=== PATIENT | male | born 1980 | race Caucasian/White ===

== ENCOUNTER 2021-06-08 10:42 | Emergency (ER) | payer OTHER ==
[~2021-06-08] VITALS: Ht 193 cm; Wt 95.3 kg
--- NOTE | 2021-06-08 10:45 | NUR ---
Placed in room 5 . Placed on laboratory monitor, blood pressure machine and pulse oximeter. To gown for exam. Side rails up. Report given to JOSE MIGUEL Cardoza.
[2021-06-08 10:48] VITALS: BP_SYST 130
--- NOTE | 2021-06-08 10:50 | NUR ---
ER Dr. Hunt at bedside examining patient.
--- NOTE | 2021-06-08 11:08 | NUR ---
RECEIVED AND IN ROOM, PT CALM, ALERT, COMMUNICATES CLEARLY IN FULL COMPLETE SENTECES, DENIES CP/SOB. MUTIPLE ABRASIONS. PT POOR HX WITH ADMISSION OF ETOH INTOXICATION
--- NOTE | 2021-06-08 12:02 | NUR ---
FOOT CARE, SUMERFACIAL ABRASIONS TO TOP OF HIS FEET
--- NOTE | 2021-06-08 12:11 | NUR ---
MEAL PROVIDED, PT TOLERATED WELL, NO DISTRESS
--- NOTE | 2021-06-08 13:25 | NUR ---
Refuses offer of alf placement. Given list of available shelters in surrounding areas.
[2021-06-08 13:30] VITALS: BP_SYST 127
--- NOTE | 2021-06-08 13:30 | NUR ---
Pt now requesting taxi voucher to return back to [place] [id number], called house detective, Jeancarlos and he stated he will request one.
--- NOTE | 2021-06-08 13:30 | NUR ---
Patient given written and verbal discharge instructions and verbalizes understanding. ER MD discussed with patient the results and treatment provided. Patient in stable condition. ID arm band removed. IV catheter removed intact and dressing applied, no active bleeding. No prescriptions given. Patient educated on pain management and to follow up with PMD. Pain Scale 0. Opportunity for questions provided and answered. Medication side effect fact sheet provided.
[2021-06-08] MEDS ORDERED: THIAMINE HCL 100 MG/ML VIAL ONE (20:42)
[2021-06-08] MEDS ORDERED: MAGNESIUM SULFATE 1 GM/2 ML VIAL ONE (20:43)
[2021-06-08] MEDS ORDERED: FOLIC ACID 5 MG/ML VIAL IV ONE (20:43)
[2021-06-08] MEDS ORDERED: DEXTROSE 50% JECT 50 ML DISP.SYRIN ONE (21:41)
[2021-06-08] MEDS ORDERED: ONDANSETRON HCL 4 MG/2 ML VIAL ONE (23:12)
== END 2021-06-08 13:30 | disposition home or self-care (01) ==
LOC: SED 10:42
DX: S90.811A Abrasion, right foot, initial encounter (principal); S90.812A Abrasion, left foot, initial encounter; F10.129 Alcohol abuse with intoxication, unspecified; X58.XXXA Exposure to other specified factors, initial encounter; Y93.89 Activity, other specified; Y92.89 Other specified places as the place of occurrence of the external cause; Y99.8 Other external cause status
CPT/HCPCS: 99283; J2405; J3411; J3475; J3490

== ENCOUNTER 2021-06-08 19:03 | Inpatient (IN) | payer OTHER, SELFPAY ==
[~2021-06-08] VITALS: Ht 193 cm; Wt 94.8 kg
[2021-06-08 19:10] VITALS: BP_SYST 106
--- NOTE | 2021-06-08 19:15 | NUR ---
Placed in room 5 . Placed on quality assurance monitor body, blood pressure machine and pulse oximeter. To gown for exam. Side rails up. Report given to Marifer GILLESPIE.
--- NOTE | 2021-06-08 20:00 | NUR ---
PT AAOX3 WITH PERIODS OF CONFUSION BIB [facility] WHO WAS PUT INTO A 5150 HOLD D/T GRAVELY DISABLED. PT WAS SEEN EARLIER TODAY FOR ETOH AND BILATERAL UPPER AND LOWER ABRASIONS TO FEET. +GENERALIZED WEAKNESS. NOTED YELLOW SCLERA. PT STATED HE DRINKS ALCOHOL EVERY DAY. HISTORY OF SEIZURES, DEPRESSION AND ETOH ABUSE.
--- NOTE | 2021-06-08 20:20 | NUR ---
# 20 gauge angiocath placed to RIGHT FA. Use of asceptic technique. Opsite placed over site. Blood return noted. Blood for lab drawn from site. Flushed with 10 cc of normal saline. No evidence of infiltration noted. Patient tolerated well.
--- NOTE | 2021-06-08 20:25 | NUR ---
DR. SEYMOUR AT BEDSIDE FOR EVALUATION.
--- NOTE | 2021-06-08 20:25 | NUR ---
urine and blood collection tubes sent to lab
[2021-06-08] MEDS ORDERED: FOLIC ACID 1 MG, THIAMINE HCL 100 MG, MAGNESIUM SULFATE 1 GM, MVI 10 ML in NACL 0.9% 1,... IV ONE (20:30)
[2021-06-08 20:42] LABS: BASOPHILS % (AUTO) 0.1 % (0.0-2.0); HEMATOCRIT 40.3 % (36-54); HEMOGLOBIN 13.8 g/dL (14.0-18.0); LYMPHOCYTES # (AUTO) 0.3 K/uL (1.0-5.5); LYMPHOCYTES % (AUTO) 3.8 % (20.5-51.5); MEAN CORPUSCULAR HEMOGLOBIN 34 pg (27-31); MEAN CORPUSCULAR HGB CONC 34 % (32-36); MEAN CORPUSCULAR VOLUME 100 fL (79.0-98.0); MONOCYTES # (AUTO) 0.6 K/uL (0.0-1.0); MONOCYTES % (AUTO) 6.5 % (1.7-9.3); NEUTROPHILS # (AUTO) 7.8 K/uL (1.8-7.7); NEUTROPHILS % (AUTO) 89.6 % (40.0-70.0); RED BLOOD CELL COUNT(AUTO) 4.03 MIL/uL (4.2-6.2); RED CELL DISTRIBUTION WIDTH 15.8 % (9.0-15.0); WHITE BLOOD COUNT (AUTO) 8.7 K/uL (4.8-10.8)
--- NOTE | 2021-06-08 21:00 | NUR ---
SECURITY AT BEDSIDE TO MARK NAVA
[2021-06-08 21:10] LABS: ANION GAP 27 (5-15); CALCIUM 9.8 mg/dL (8.4-11.0); CHLORIDE 95 mmol/L (98-107); CREATININE 3.98 mg/dL (0.55-1.30); SODIUM SERUM 138 mmol/L (136-145); UREA NITROGEN, BLOOD 20 mg/dL (8-21)
[2021-06-08 21:11] LABS: PLATELET COUNT (AUTO) 32 K/uL (130-430)
[2021-06-08 21:21] LABS: ALBUMIN 4.2 g/dL (3.4-4.8)
[2021-06-08 21:29] LABS: GFR AFRICAN AMERICAN 21 mL/min (>90); POTASSIUM 2.6 mmol/L (3.5-5.1)
--- NOTE | 2021-06-08 21:30 | NUR ---
PT PLACED ON CARDIAC MONTIOR. GIVEN GOWN. ALL BELONGINGS GATHERED AND PLACED IN BELONGINGS BAG.
--- NOTE | 2021-06-08 21:30 | NUR ---
PT BS 57. MD NOTIFIED. N/O FOR DEXTROSE 50 GIVEN.
[2021-06-08 21:32] LABS: ALCOHOL, BLOOD < 3 mg/dL (<10); GLUCOSE 40 mg/dL (70-99)
[2021-06-08 21:35] LABS: TOTAL BILIRUBIN 9.6 mg/dL (0.0-1.0)
[2021-06-08] MEDS ORDERED: DEXTROSE 50% JECT 50 ML DISP.SYRIN IVP ONE (21:45)
--- NOTE | 2021-06-08 21:50 | NUR ---
ISABELLA BEAN COLLECTED AND SENT TO LAB.
[2021-06-08 21:58] LABS: INR 2.1 (0.80-1.20)
--- NOTE | 2021-06-08 22:07 | NUR ---
dr. rincon at bedside for evaluation.
[2021-06-08] MEDS ORDERED: POTASSIUM CHLORIDE 20 MEQ TAB.PRT.SR PO ONE (22:15)
[2021-06-08] MEDS ORDERED: KCL 30mEq in D5/0.45NS 1000 mL 1,000 ML IV ONE (22:15)
--- NOTE | 2021-06-08 22:23 | NUR ---
PORTABLE XRAY DONE AT BEDSIDE.
[2021-06-08] MEDS ORDERED: NACL 0.9% 1,000 ML IV ONE (22:30)
--- NOTE | 2021-06-08 22:40 | NUR ---
PT BROUGHT BACK FROM CT SCAN VIA GURNEY BY RADIOLOGY STAFF. PT HAVING NAUSEA AND VOMITING. PT VOMITTED DARK VOMIT NOTED WITH FOOD. MADE AWARE. N/O OF ZOFRAN 4MG IVP TO BE GIVEN.
--- NOTE | 2021-06-08 22:45 | NUR ---
BLOOD GLUCOSE RE-CHECKED. BS NOW 130. MADE AWARE.
[2021-06-08 22:52] LABS: ASPARTATE AMINOTRANSFERASE 17391 U/L (10-37)
[2021-06-08 23:05] LABS: ALANINE AMINOTRANSFERASE 5824 U/L (12-78)
--- NOTE | 2021-06-08 23:30 | NUR ---
# 18 gauge angiocath placed to LEFT AC. Use of asceptic technique. Opsite placed over site. Blood return noted. Flushed with 10 cc of normal saline. No evidence of infiltration noted. Patient tolerated well.
[2021-06-08] MEDS ORDERED: ONDANSETRON HCL 4 MG/2 ML VIAL IVP ONE (23:45)
[2021-06-09] MEDS ORDERED: HALOPERIDOL LACTATE 5 MG/ML VIAL IM ONE (00:15)
[2021-06-09] MEDS ORDERED: LORazepam 2 MG/ML VIAL IVP ONE (00:15)
--- NOTE | 2021-06-09 00:56 | NUR ---
JOSE MIGUEL Alfaro from [facility] Called back. Authorization to admit to Telemetry [id number].
--- NOTE | 2021-06-09 01:10 | NUR ---
Patient will be admitted to [facility]. Admitted to TELE unit. PENDING ROOM ASSIGNMENT. Belongings list completed. Complete and up to date summary report printed. SBAR report to be given at bedside with opportunity for questions.
--- NOTE | 2021-06-09 02:11 | NUR ---
Patient's code status is FULL CODE paperwork completed and placed in chart.
[2021-06-09] MEDS: D5LR 500 ML IV SCH ×6 (02:43→21:15)
--- NOTE | 2021-06-09 02:59 | NUR ---
PT PLACED ON HOSPITAL BED. REPOSITIONED. AND GIVEN NEW LINEN.
--- NOTE | 2021-06-09 04:38 | NUR ---
Patient resting quietly. No acute distress noted. Vital signs within normal range. IVF infusing with no s/s of infiltration at this time. Will cont to monitor
--- NOTE | 2021-06-09 06:30 | NUR ---
Patient resting quietly. No acute distress noted. Vital signs within normal range.
--- NOTE | 2021-06-09 07:12 | NUR ---
REPORT GIVEN TO JOSE MIGUEL MOSHER.
[2021-06-09] MEDS ORDERED: D5W IV ONE ×3 (07:30→14:00)
[2021-06-09] MEDS ORDERED: ACETYLCYSTEINE IV ONE ×3 (07:30→14:00)
--- NOTE | 2021-06-09 07:30 | NUR ---
Patient will be admitted to care of Dr. Marrero. Admitted to tele unit. Will go to room 113A. Belongings list completed. Complete and up to date summary report printed. SBAR report to be given at bedside with opportunity for questions.
--- NOTE | 2021-06-09 07:59 | NUR ---
CONSULTATION PAGED/CALLED Reason for Consultation: ALCOHOLIC HEPATITIS Person Who was Notified: DAGO Consulting Physician: MANNIE Radio Script Writer Specialty: GI Ordering Physician: MORALES
--- NOTE | 2021-06-09 08:00 | NUR ---
CONSULTATION PAGED/CALLED Reason for Consultation: [] ALCOHOLIC HEPATITIS Person Who was Notified: [] DR CHAND Consulting Physician: [] DR CHAND Natural Resource Economist Specialty: [] GI Ordering Physician: [] DR NIELSEN
[2021-06-09 08:48] VITALS: BP_SYST 128
[2021-06-09] MEDS: LORazepam 2 MG/ML VIAL IVP PRN ×3 (09:56→22:04)
--- NOTE | 2021-06-09 10:00 | NUR ---
IV ATIVAN 1MG ADMINISTERED, PATIENT WAS ANXIOUS AND SHAKING, VITAL SIGNS STABLE, WILL ASSESS FOR EFFECTIVENESS.
[2021-06-09 11:11] VITALS: BP_SYST 126
--- NOTE | 2021-06-09 11:17 | NUR ---
CONSULTATION PAGED/CALLED Reason for Consultation: RUSSELL Ruiz Person Who was Notified: MESERET Consulting Physician: DOUG Paper Tube Cutter Specialty: NEPHRO Ordering Physician: MORALES
[2021-06-09 12:04] LABS: BILIRUBIN,URINE 2+ (NEGATIVE); BLOOD, URINE 3+ (NEGATIVE); CLARITY/URINE SL CLOUDY (CLEAR); COLOR,URINE BROWN (YELLOW); GLUCOSE,URINE TRACE (NEGATIVE); KETONES,URINE 1+ (NEGATIVE); LEUKOCYTE ESTERASE ,URINE NEGATIVE (NEGATIVE); NITRITE, URINE NEGATIVE (NEGATIVE); PROTEIN URINE 2+ (NEGATIVE)
[2021-06-09 12:08] LABS: BASOPHILS % (AUTO) 0.3 % (0.0-2.0); EOSINOPHILS % (AUTO) 0.8 % (0.0-4.0); HEMOGLOBIN 11.2 g/dL (14.0-18.0); LYMPHOCYTES # (AUTO) 0.7 K/uL (1.0-5.5); LYMPHOCYTES % (AUTO) 10.4 % (20.5-51.5); MEAN CORPUSCULAR HEMOGLOBIN 35 pg (27-31); MEAN CORPUSCULAR HGB CONC 35 % (32-36); MEAN CORPUSCULAR VOLUME 99 fL (79.0-98.0); MONOCYTES # (AUTO) 0.2 K/uL (0.0-1.0); MONOCYTES % (AUTO) 3.5 % (1.7-9.3); NEUTROPHILS # (AUTO) 5.4 K/uL (1.8-7.7); RED BLOOD CELL COUNT(AUTO) 3.24 MIL/uL (4.2-6.2); RED CELL DISTRIBUTION WIDTH 16.2 % (9.0-15.0); WHITE BLOOD COUNT (AUTO) 6.3 K/uL (4.8-10.8)
[2021-06-09 12:19] LABS: PLATELET COUNT (AUTO) 36 K/uL (130-430)
[2021-06-09 12:28] LABS: BARBITURATE, URINE NEGATIVE (NEG <=200); BENZODIAZEPINE, URINE POSITIVE (NEG <=150); CANNABINOID, URINE POSITIVE (NEG <=50); COCAINE, URINE NEGATIVE (NEG <=150); METHAMPHETAMINES SCREEN,URINE NEGATIVE (NEG <=500); OPIATE, URINE NEGATIVE (NEG <=100); PHENCYCLIDINE SCREEN,URINE NEGATIVE (NEG <=25); UR TRICYCLIC ANTIDEPRESSANTS NEGATIVE (NEG <=300); URINE AMPHETAMINE NEGATIVE (NEG <=500); URINE METHADONE NEGATIVE (NEG <=200); URINE OXYCODONE SCREEN NEGATIVE (NEG <=100); URINE PROPOXYPHENE SCREEN NEGATIVE (NEG <=300)
[2021-06-09 12:34] LABS: CALCIUM 7.8 mg/dL (8.4-11.0); CREATININE 4.85 mg/dL (0.55-1.30)
[2021-06-09 12:48] LABS: ALBUMIN 2.8 g/dL (3.4-4.8); PHOSPHORUS 3.1 mg/dL (2.7-4.5); TOTAL BILIRUBIN 6.7 mg/dL (0.0-1.0)
[2021-06-09 12:50] LABS: POTASSIUM 2.8 mmol/L (3.5-5.1)
[2021-06-09 12:56] LABS: BACTERIA,URINE RARE /HPF (None Seen); URINE AMORPHOUS URATE 1+ /HPF (None Seen); WBC,URINE 0-3 /HPF (0-3)
[2021-06-09 12:57] LABS: FINE GRANULAR CASTS,URINE 0-10 /LPF (None Seen)
--- NOTE | 2021-06-09 13:40 | NUR ---
IV ATIVAN 1MG ADMINISTERED, PATIENT WAS ANXIOUS AND SHAKING, VITAL SIGNS STABLE, WILL ASSESS FOR EFFECTIVENESS.
--- NOTE | 2021-06-09 13:42 | NUR ---
AUBRIE met with Pt. to provide substance abuse referrals. Pt. has a clear plan for DC, he intends to return to [place] for [place], will be transported by his mother. Pt. was provided with local sober living facilities, he is interested in [facility], upon completion of Detox. Pt. was receptive of this information and had no other request for inquiry. Addendum: 06/17/21 at 0904 by Chris Gerard LCSW Correction/ Charting ERROR: AUBRIE attempted to meet with this Pt. 2 X however, he was lethargic and unable to participate in assessment.
[2021-06-09 15:57] VITALS: BP_SYST 130
--- NOTE | 2021-06-09 18:51 | NUR ---
PATIENT IN BED, NO S/S OF DISTRESS, SITTER AT BEDSIDE, PATIENT ASSESSED FOR ALCOHOL WITHDRAWAL SYMPTOMS, MINOR TREMORS NOTED BUT IMPROVED SINCE ADMISSION TO UNIT. IV INTACT PATENT IN LEFT FA 22G RUNNING ACETADOTE AT 62.5ML/HR, TOLERATING WELL, BED IN LOWEST LOCKED POSITION, CALL LIGHT WITHIN REACH, SEIZURE PADS IN PLACE, A/OX3, SAFETY MEASURES IN PLACE, WILL CONTINUE TO MONITOR.
[2021-06-09 20:00] VITALS: BP_SYST 125
[2021-06-10] MEDS: D5LR 500 ML IV SCH ×9 (00:18→17:57)
[2021-06-10 06:06] LABS: HEPATITIS A AB, IgM Negative (Negative); HEPATITIS B CORE AB, IgM Negative (Negative); HEPATITIS B SURFACE AG Negative (Negative)
--- NOTE | 2021-06-10 07:30 | NUR ---
Patient resting comfortably in bed with no distress noted. Patient stable at this time.
[2021-06-10 07:45] LABS: BASOPHILS % (AUTO) 0.6 % (0.0-2.0); EOSINOPHILS # (AUTO) 0.2 K/uL (0.0-0.4); EOSINOPHILS % (AUTO) 3.7 % (0.0-4.0); HEMATOCRIT 32.8 % (36-54); HEMOGLOBIN 11.5 g/dL (14.0-18.0); LYMPHOCYTES # (AUTO) 0.9 K/uL (1.0-5.5); LYMPHOCYTES % (AUTO) 16.1 % (20.5-51.5); MEAN CORPUSCULAR HEMOGLOBIN 34 pg (27-31); MEAN CORPUSCULAR HGB CONC 35 % (32-36); MEAN CORPUSCULAR VOLUME 97 fL (79.0-98.0); MONOCYTES # (AUTO) 0.7 K/uL (0.0-1.0); MONOCYTES % (AUTO) 12.5 % (1.7-9.3); NEUTROPHILS # (AUTO) 3.6 K/uL (1.8-7.7); NEUTROPHILS % (AUTO) 67.1 % (40.0-70.0); PLATELET COUNT (AUTO) 52 K/uL (130-430); RED BLOOD CELL COUNT(AUTO) 3.36 MIL/uL (4.2-6.2); RED CELL DISTRIBUTION WIDTH 16.2 % (9.0-15.0); WHITE BLOOD COUNT (AUTO) 5.3 K/uL (4.8-10.8)
[2021-06-10 08:00] VITALS: BP_SYST 130
[2021-06-10 08:01] LABS: INR 1.6 (0.80-1.20); PROTHROMBIN TIME 16.3 SECS (9.5-12.5)
[2021-06-10 08:14] LABS: TOTAL IRON BIND. CAPACITY 162 ug/dL (250-450)
--- NOTE | 2021-06-10 08:30 | NUR ---
Patient stable with Dr. James at bedside.
[2021-06-10 08:32] LABS: ANION GAP 13 (5-15); CALCIUM 8.6 mg/dL (8.4-11.0); CHLORIDE 99 mmol/L (98-107); CREATININE 4.89 mg/dL (0.55-1.30); GLUCOSE 128 mg/dL (70-99); LACTATE DEHYDROGENASE 819 U/L (85-227); SODIUM SERUM 139 mmol/L (136-145); TOTAL BILIRUBIN 8.4 mg/dL (0.0-1.0); UREA NITROGEN, BLOOD 30 mg/dL (8-21)
[2021-06-10] MEDS: NEPHROVITE, (FOLIC ACID/VITAMIN B COMP W-C 1 TAB) PO SCH (09:45)
[2021-06-10] MEDS: THIAMINE HCL 100 MG TABLET PO SCH (09:45)
--- NOTE | 2021-06-10 09:47 | NUR ---
Scheduled po medications given per order. Patient stable at this time with RENAE Springer at bedside. Addendum: 06/10/21 at 0949 by Mariam Mcintosh RN Emptied 500 mls of clear, jaziel urine.
--- NOTE | 2021-06-10 09:55 | NUR ---
Patient ambulating with walker assist in hallway with RENAE Springer standing by.
[2021-06-10 10:09] LABS: GFR AFRICAN AMERICAN 17 mL/min (>90); POTASSIUM 2.6 mmol/L (3.5-5.1)
--- NOTE | 2021-06-10 10:09 | NUR ---
Patient sitting on side of bed with Dr. Waterman and RENAE Springer at bedside. Patient stable.
[2021-06-10] MEDS ORDERED: POTASSIUM CHLORIDE 20 MEQ TAB.PRT.SR PO ONE (10:30)
[2021-06-10 10:55] LABS: ACETAMINOPHEN < 1 ug/mL (1-30)
[2021-06-10 11:04] LABS: ASPARTATE AMINOTRANSFERASE 4894 U/L (10-37)
[2021-06-10 11:05] LABS: ALANINE AMINOTRANSFERASE 3784 U/L (12-78)
--- NOTE | 2021-06-10 11:07 | NUR ---
Scheduled medication given per order. Patient resting quietly in bed with sitter at bedside. Patient stable.
[2021-06-10 12:15] VITALS: BP_SYST 129
--- NOTE | 2021-06-10 12:40 | NUR ---
Wound Evaluation: Wound Consult ordered for Low Ru Score. Patient evaluated for a low Ru score, now a 17. Patient was awake, alert, oriented and received in a [place] Bed with a mattress. Patient needs to be turned in bed. Skin assessment: 1. Right Great Toe, Dorsal Aspect: Black scab, present on admission. No odor, no drainage. Periwound intact. Dry, stable. 2. Right Second Toe, Dorsal Aspect: Black scab, present on admission. No odor, no drainage. Periwound intact. Dry, stable. 3. Right Third Toe, Dorsal Aspect: Black scab, present on admission. No odor, no drainage. Periwound intact. Dry, stable. 4. Right Fourth Toe, Dorsal Aspect: Black scab, present on admission. No odor, no drainage. Periwound intact. Dry, stable. 5. Right Great Toe, Distal Aspect: Black scab, present on admission. No odor, no drainage. Periwound intact. Dry, stable. 6. Right Second Toe, Distal Aspect: Black scab, present on admission. No odor, no drainage. Periwound intact. Dry, stable. 7. Left Great Toe, Dorsal Aspect: Black scab, present on admission. No odor, no drainage. Periwound intact. Dry, stable. 8. Left Second Toe, Dorsal Aspect: Black scab, present on admission. No odor, no drainage. Periwound intact. Dry, stable. 9. Left Anterior Ankle Joint Line: Black scab, present on admission. No odor, no drainage. Periwound intact. Dry, stable. 10. Left Knee: Black scab, present on admission. No odor, no drainage. Periwound intact. Dry, stable. 11. Left Tibial Plateau: Black scab, present on admission. No odor, no drainage. Periwound intact. Dry, stable. 12. Right Distal Anterior Rodriguez: Black scab, present on admission. No odor, no drainage. Periwound intact. Dry, stable. 13. Left Posterior Upper Extremity/Elbow/Bicep areas: Multiple, multiple abrasions with black scabs, present on admission. 14. Right Posterior Upper Extremity/Elbow/Bicep areas: Multiple, multiple abrasions with black scabs, present on admission. 15. Left Forearm: Multiple black scabs, present on admission. No odor, no drainage. Periwound intact. Dry, stable. 16. Right Forearm: Multiple black scabs, present on admission. No odor, no drainage. Periwound intact. Dry, stable. Recommend: No dressings needed. Continue to monitor sites every shift. Contact wound care nurse if sites open or draining. 17. Left Heel/Plantar Foot: Dry and scaly skin, along with heel fissures, present on admission. 18. Right Heel/Plantar Foot: Dry and scaly skin, present on admission. Recommend: Cleanse involved areas with mild soap and water. Pat dry. Apply Eucerin cream to dry scaly skin areas twice daily. Do not apply to scabs. Recommend: Encourage and assist patient as needed with repositioning every 2 hours with pillow support. Elevate, off-load and float bilateral heels with pillows. Offload pressure areas with pillows for pressure re-distribution. Perform skin care and monitor skin integrity Q shift. Use moisture barrier cream on moisture susceptible areas QID and PRN for soiling.
--- NOTE | 2021-06-10 12:40 | NUR ---
Patient resting comfortably in bed with Armani (wound care) at bedside. Patient stable at this time.
--- NOTE | 2021-06-10 13:15 | NUR ---
Patient resting quietly in bed with no distress noted. Emptied 500 mls of clear, jaziel urine from urinal.
--- NOTE | 2021-06-10 13:45 | NUR ---
Patient stable with Dr. Marrero at bedside.
--- NOTE | 2021-06-10 15:40 | NUR ---
Patient resting quietly in bed with no distress noted. Emptied 250 ml of clear, light jaziel urine. Patient stable.
[2021-06-10 16:00] VITALS: BP_SYST 124
--- NOTE | 2021-06-10 18:00 | NUR ---
Patient resting comfortably in bed with no distress noted and no complaint of pain. Started new IVF bag. Patient stable throughout shift.
--- NOTE | 2021-06-10 19:25 | NUR ---
initial notes: pt is awake, alert, oriented x 3. with some moment of confusion. no sign of distress, no pain, pt sit on the edge of bed and eat his dinner. ivf infusing to left fore intact and patent.pt has multiple abrasion to bilateral toes, multiple dry black scabs. explain plan of care and safety. needs attended, call light in reach, side rails up .ow bed position. will monitor pt at bedside as sitter.
--- NOTE | 2021-06-10 19:30 | NUR ---
initial notes: pt is sleeping, no sign of pain, not distress, no sob. pt vital sign with normal limits. pt right arm is swollen. according to report pt has dvt on left axilla and right brachial. dr. welch is page. safety precaution in place, side rails up. low bed position. will monitor. Addendum: 06/10/21 at 2320 by Francisco Joaquin RN disregard this entry, wrong pt.
[2021-06-10 19:33] VITALS: BP_SYST 135
--- NOTE | 2021-06-10 19:46 | NUR ---
dr. welch call back- report to bilateral dvt to left axillaxy and right brachial. order eliquis 5mg bid via gt and dc picc line, tpn and lipids. increase gtfeeding to 40cc/hr. Addendum: 06/10/21 at 2319 by Francisco Joaquin RN disregard this note, wrong entry
--- NOTE | 2021-06-10 19:51 | NUR ---
HIGH ALERT NOTE: Called Dr. welch back at [phone] identified within the medical roster to verify physician authenticity. Addendum: 06/10/21 at 5206 by Francisco Joaquin RN disregard wrong entry
[2021-06-10] MEDS: D5LR 1,000 ML IV SCH (21:46)
[2021-06-10] MEDS: EMOLLIENT COMBINATION NO.73 78 GM CREAM..G. TP SCH (21:49)
[2021-06-10] MEDS: LORazepam 2 MG/ML VIAL IVP PRN (22:23)
[2021-06-11] VITALS: BP_SYST 132
--- NOTE | 2021-06-11 00:16 | NUR ---
pt is sleeping, no pain,no sob, not distres, stable vital sign. needs attended.
[2021-06-11] MEDS: D5LR 1,000 ML IV SCH ×4 (03:07→22:07)
--- NOTE | 2021-06-11 06:13 | NUR ---
closing: pt wakes up and watch tv, went back to sleeping. no pain, not distress, stable. ivf infusing well. needs attended the whole shift. will continue to monitor at bedside, until sbar reporting given to am rn.
[2021-06-11 06:51] LABS: INR 1.3 (0.80-1.20); PROTHROMBIN TIME 13.8 SECS (9.5-12.5)
[2021-06-11 07:14] LABS: BASOPHILS # (AUTO) 0.1 K/uL (0.0-0.2); BASOPHILS % (AUTO) 1.6 % (0.0-2.0); EOSINOPHILS # (AUTO) 0.2 K/uL (0.0-0.4); EOSINOPHILS % (AUTO) 4.5 % (0.0-4.0); HEMATOCRIT 31.6 % (36-54); LYMPHOCYTES % (AUTO) 20.3 % (20.5-51.5); MEAN CORPUSCULAR HEMOGLOBIN 34 pg (27-31); MEAN CORPUSCULAR HGB CONC 35 % (32-36); MEAN CORPUSCULAR VOLUME 99 fL (79.0-98.0); MONOCYTES # (AUTO) 1.3 K/uL (0.0-1.0); MONOCYTES % (AUTO) 28.2 % (1.7-9.3); NEUTROPHILS # (AUTO) 2.1 K/uL (1.8-7.7); NEUTROPHILS % (AUTO) 45.4 % (40.0-70.0); PLATELET COUNT (AUTO) 74 K/uL (130-430); RED BLOOD CELL COUNT(AUTO) 3.21 MIL/uL (4.2-6.2); RED CELL DISTRIBUTION WIDTH 16.2 % (9.0-15.0); WHITE BLOOD COUNT (AUTO) 4.7 K/uL (4.8-10.8)
--- NOTE | 2021-06-11 07:38 | NUR ---
OPENING NOTE Received patient from night nurse. Patient is alert and oriented x4. On room air and tolerating well with no signs of shortness of breath noted. IV is patent, infusing fluids as ordered. Bed locked and in lowest position. Call light within reach. Bed alarm on. Fall and aspiration precautions in place. Sitter present. Will continue to monitor.
[2021-06-11 08:00] VITALS: BP_SYST 141
[2021-06-11] MEDS: EMOLLIENT COMBINATION NO.73 78 GM CREAM..G. TP SCH ×2 (08:08→20:55)
[2021-06-11] MEDS: THIAMINE HCL 100 MG TABLET PO SCH (08:08)
[2021-06-11] MEDS: NEPHROVITE, (FOLIC ACID/VITAMIN B COMP W-C 1 TAB) PO SCH (08:08)
[2021-06-11 09:23] LABS: CALCIUM 9.1 mg/dL (8.4-11.0); CREATININE 2.79 mg/dL (0.55-1.30); PHOSPHORUS 2.9 mg/dL (2.7-4.5); TOTAL BILIRUBIN 7.8 mg/dL (0.0-1.0)
[2021-06-11 09:43] LABS: POTASSIUM 2.9 mmol/L (3.5-5.1)
--- NOTE | 2021-06-11 09:50 | NUR ---
CRITICAL LAB: Laboratory called with critical lab value K 2.9. Medical record number and patient name verified. Read back of values done. Dr. Waterman notified of value. New orders for PO potassium now and at 1400. Noted and will carry out.
--- NOTE | 2021-06-11 09:52 | NUR ---
HIGH ALERT NOTE: Called Dr. CAMACHO back at [phone] identified within the medical roster to verify physician authenticity.
[2021-06-11] MEDS ORDERED: POTASSIUM CHLORIDE 20 MEQ/PKT PACKET PO ONE (10:00)
[2021-06-11 11:06] LABS: AFP, TUMOR MARKER 3.7 ng/mL (0.0-8.3); HEPATITIS A AB, IgM Negative (Negative); HEPATITIS B CORE AB, IgM Negative (Negative); HEPATITIS B SURFACE AG Negative (Negative)
[2021-06-11 12:00] VITALS: BP_SYST 130
--- NOTE | 2021-06-11 13:45 | NUR ---
RN NOTE Patient is resting in bed. Respirations even and unlabored. PO Potassium given as ordered. IV is infusing fluids with no signs of infiltration noted. Will continue to monitor.
[2021-06-11] MEDS ORDERED: POTASSIUM CHLORIDE 20 MEQ TAB.PRT.SR PO ONE (14:00)
--- NOTE | 2021-06-11 14:22 | NUR ---
Dr. Janes henderson MD to see patient. Spoke with patient about plan of care. Will follow up with any new orders.
[2021-06-11 17:10] VITALS: BP_SYST 141
--- NOTE | 2021-06-11 18:33 | NUR ---
CLOSING NOTE Patient is eating dinner in bed. On room air and tolerating well with no signs of shortness of breath noted. IV is patent, infusing fluids as ordered. Bed locked and in lowest position. Call light within reach. All needs met throughout shift. Will endorse to night nurse.
--- NOTE | 2021-06-11 19:30 | NUR ---
initial notes: pt is awake, alert, oriented x 3. no sign of distress, no pain, pt is watching tv. ivf infusing to left fore intact and patent.pt has multiple abrasion to bilateral toes, multiple dry black scabs. explain plan of care and safety. needs attended, call light in reach, side rails up .ow bed position. will monitor pt at bedside as sitter.
[2021-06-11 19:47] VITALS: BP_SYST 148
[2021-06-12] VITALS: BP_SYST 141
--- NOTE | 2021-06-12 00:40 | NUR ---
sleeping, comfortable, no pain, stable vital sign, needs attended. safety precaution in place.
[2021-06-12] MEDS: D5LR 1,000 ML IV SCH ×3 (03:47→19:58)
--- NOTE | 2021-06-12 05:16 | NUR ---
Consultation Paged Reason for Consultation: Gravely disabled Was consult called: Y Person who was notified: Raymond Consulting Physician: Dr. Rea Ordering Physician: Dr. Marrero
--- NOTE | 2021-06-12 06:28 | NUR ---
CLOSING: pt is awake, alert. no pain. ambulate to hallway with steady gait. ivf infusing well. needs attended, call light in reach. will continue to monitor, until sbar reporting given to am rn.
[2021-06-12 07:01] LABS: BASOPHILS # (AUTO) 0.1 K/uL (0.0-0.2); BASOPHILS % (AUTO) 1.4 % (0.0-2.0); EOSINOPHILS # (AUTO) 0.2 K/uL (0.0-0.4); HEMATOCRIT 29.9 % (36-54); HEMOGLOBIN 10.5 g/dL (14.0-18.0); LYMPHOCYTES # (AUTO) 1.1 K/uL (1.0-5.5); LYMPHOCYTES % (AUTO) 23.1 % (20.5-51.5); MEAN CORPUSCULAR HEMOGLOBIN 35 pg (27-31); MEAN CORPUSCULAR HGB CONC 35 % (32-36); MEAN CORPUSCULAR VOLUME 99 fL (79.0-98.0); MONOCYTES # (AUTO) 1.9 K/uL (0.0-1.0); MONOCYTES % (AUTO) 39.4 % (1.7-9.3); NEUTROPHILS # (AUTO) 1.6 K/uL (1.8-7.7); NEUTROPHILS % (AUTO) 32.1 % (40.0-70.0); PLATELET COUNT (AUTO) 90 K/uL (130-430); RED BLOOD CELL COUNT(AUTO) 3.03 MIL/uL (4.2-6.2); RED CELL DISTRIBUTION WIDTH 16.8 % (9.0-15.0); WHITE BLOOD COUNT (AUTO) 4.9 K/uL (4.8-10.8)
[2021-06-12 08:00] VITALS: BP_SYST 140
[2021-06-12] MEDS: THIAMINE HCL 100 MG TABLET PO SCH (09:00)
[2021-06-12] MEDS: NEPHROVITE, (FOLIC ACID/VITAMIN B COMP W-C 1 TAB) PO SCH (09:00)
[2021-06-12] MEDS: EMOLLIENT COMBINATION NO.73 78 GM CREAM..G. TP SCH ×2 (09:00→20:33)
[2021-06-12 10:26] LABS: ALBUMIN 2.7 g/dL (3.4-4.8); CALCIUM 8.6 mg/dL (8.4-11.0); CREATININE 1.77 mg/dL (0.55-1.30); POTASSIUM 3.1 mmol/L (3.5-5.1); TOTAL BILIRUBIN 4.7 mg/dL (0.0-1.0)
[2021-06-12] MEDS ORDERED: POTASSIUM CHLORIDE 20 MEQ TAB.PRT.SR PO ONE (10:45)
[2021-06-12 16:00] VITALS: BP_SYST 142
--- NOTE | 2021-06-12 16:57 | NUR ---
Dietitian Recommendations * Recommend mechanical soft diet w/ Ensure High Protein BID (ONS provides an additional 320 kcal/day, 32 gm protein/day) LARRY GARCIA Please refer to Nutrition Assessment for details. Addendum: 06/12/21 at [address] Amended: Links added.
[2021-06-12] MEDS ORDERED: MULTIVITS,CA,MINERALS/IRON/FA 1 TABLET PO SCH (18:00)
[2021-06-12 19:00] VITALS: BP_SYST 145
--- NOTE | 2021-06-12 19:15 | NUR ---
change of shift.pt.presents quiescent affect;calm,resting.pt.presented seizure activity 2/t etoh abuse upon admission.pt.refused bed side rails padding. pt.presents iv access intact iv fluids infusing.pt.capable to reposition self/ambulate unassisted.general status stable.respiratory status stable;unlabored@room air.call light/telephone w/in access of the pt.
[2021-06-12 20:00] VITALS: BP_SYST 145
--- NOTE | 2021-06-12 20:00 | NUR ---
pt.assessed.v/s assessed values wnl.no c/o pain,nausea.i have apprised the pt.that snacks/beverages are available w/in the shift.pt.requested snacks/beverages.pt.capable to reposition self.call light/telephone w/in access of the pt.
--- NOTE | 2021-06-12 20:30 | NUR ---
2100pmedications administered.pt.had requested medication;anxiety.i have administered ativan;1mg ivp.to assess the efficacy of the medication per protocol.pt.requested snacks/beverages provided.call light/telephone w/in access of the pt. Addendum: 06/13/21 at 0121 by David Veliz RN in addition i have provided toiletries.
[2021-06-12] MEDS: LORazepam 2 MG/ML VIAL IVP PRN (20:37)
--- NOTE | 2021-06-12 22:00 | NUR ---
pt.assessed.pt.presents quiescent affect;calm,somnolent.per flacc pain mgx pt.absent facial grimaces/body posturing.iv access intact iv fluids infusing.pt.capable to reposition self.call light/telephone w/in access of the pt.
[2021-06-13] VITALS: BP_SYST 150
--- NOTE | 2021-06-13 | NUR ---
pt.assessed.v/s assessed values wnl.no c/o pain,nausea.iv access intact iv fluids infusing.pt.capable to reposition self. pablo light/telephone w/in access of the pt.
--- NOTE | 2021-06-13 04:00 | NUR ---
pt.assessed.pt.presents quiescent affect;calm,somnolent.per flacc pain mgx pt.absent facial grimaces/body posturing. iv access intact iv fluids infusing.pt.capable to reposition self.call light/telephone w/in access of the pt.
[2021-06-13] MEDS: D5LR 1,000 ML IV SCH (05:33)
--- NOTE | 2021-06-13 06:21 | NUR ---
pt.assessed.pt.ambulating gait assessed wnl.no c/o pain,nausea.no requests posited@this hour.pt.possible d/c in am. call light/telephone w/in access of the pt.
[2021-06-13 06:40] LABS: HEMATOCRIT 32.5 % (36-54); MEAN CORPUSCULAR HEMOGLOBIN 34 pg (27-31); MEAN CORPUSCULAR HGB CONC 34 % (32-36); MEAN CORPUSCULAR VOLUME 101 fL (79.0-98.0); PLATELET COUNT (AUTO) 143 K/uL (130-430); RED BLOOD CELL COUNT(AUTO) 3.22 MIL/uL (4.2-6.2); RED CELL DISTRIBUTION WIDTH 17.4 % (9.0-15.0); WHITE BLOOD COUNT (AUTO) 6.9 K/uL (4.8-10.8)
[2021-06-13 06:53] LABS: ALBUMIN 3.1 g/dL (3.4-4.8); CALCIUM 8.5 mg/dL (8.4-11.0); CREATININE 1.53 mg/dL (0.55-1.30); POTASSIUM 3.3 mmol/L (3.5-5.1)
[2021-06-13 08:31] LABS: TOTAL BILIRUBIN 3.3 mg/dL (0.0-1.0)
[2021-06-13] MEDS ORDERED: GABAPENTIN 100 MG CAPSULE PO ONE (09:15)
[2021-06-13 10:48] LABS: ATYPICAL LYMPHOCYTES % 15 % (0-0); BASOPHILS % (MANUAL) 0 % (0-2); EOSINOPHILS % (MANUAL) 1 % (0-7); LYMPHOCYTES % (MANUAL) 35 % (20-46); METAMYELOCYTES % 1 % (0-0); MONOCYTES % (MANUAL) 8 % (0-11)
--- NOTE | 2021-06-13 10:49 | NUR ---
AMA: Patient does not wish to proceed with medical care recommended by Janes. Patient given information related to possible complications, up to and including , which could occur as a result of leaving hospital at this time. Patient verbalizes understanding of risks involved leaving against medical advice. Patient has signed AMA form.
[2021-06-13 13:06] LABS: ANTI NUCLEAR AB WITH REFLEX Negative (Negative)
[2021-06-13] MEDS ORDERED: GABAPENTIN 100 MG CAPSULE PO SCH (15:00)
[2021-06-14 09:06] LABS: ANTI-SMOOTH MUSCLE AB 9 Units (0-19)
[2021-06-21 13:06] LABS: ATYPICAL pANCA <1:20 titer (Neg:<1:20); CYTOPLASMIC (C-ANCA) <1:20 titer (Neg:<1:20); CYTOPLASMIC (P-ANCA) <1:20 titer (Neg:<1:20)
[2021-06-25 14:18] LABS: ALPHA-1-ANTITRYPSIN, S 390 mg/dL (101-187)
[2021-06-25 14:20] LABS: FERRITIN 19925 ng/mL (30-400)
== END 2021-06-13 10:55 | disposition left against medical advice (07) | DRG 52 ==
LOC: SED 19:03 → STU 06-09 01:08 → SMU 06-11 16:16
PROVIDERS: ADMIT Internal Medicine; ATTEND Internal Medicine
DX: G93.41 Metabolic encephalopathy (principal); K72.00 Acute and subacute hepatic failure without coma; K76.7 Hepatorenal syndrome; N17.0 Acute kidney failure with tubular necrosis; E44.0 Moderate protein-calorie malnutrition; E87.2 Acidosis; D68.9 Coagulation defect, unspecified; D69.6 Thrombocytopenia, unspecified; K70.10 Alcoholic hepatitis without ascites; D64.9 Anemia, unspecified; Y90.0 Blood alcohol level of less than 20 mg/100 ml; F10.229 Alcohol dependence with intoxication, unspecified; G62.9 Polyneuropathy, unspecified; Z20.822 Contact with and (suspected) exposure to COVID-19; Z53.29 Procedure and treatment not carried out because of patient's decision for other reasons; F17.200 Nicotine dependence, unspecified, uncomplicated; E16.2 Hypoglycemia, unspecified; E87.6 Hypokalemia; F12.10 Cannabis abuse, uncomplicated; F13.10 Sedative, hypnotic or anxiolytic abuse, uncomplicated; Z98.1 Arthrodesis status; Z68.25 Body mass index [BMI] 25.0-25.9, adult; Z59.00 Homelessness unspecified; Z83.79 Family history of other diseases of the digestive system
CPT/HCPCS: 36415; 70450-TC; 71045; 72125-TC; 76376; 76700-TC; 80053; 80074; 80307; 81000; 82103; 82105; 82140; 82728; 82962; 82977; 83516; 83540; 83550; 83615; 83690; 84100; 85007; 85025; 85027; 85610-TC; 85730-TC; 86038; 86256; 96372; 96375; 97110-GP; 97116-GP; 97530-GP; 99291; G0378; G0480; G0481; G0482; J0132; J1630; J2060; J7060